=== PATIENT | female | born 1945 | race Caucasian/White ===

== ENCOUNTER 2021-09-02 19:25 | Emergency (ER) | payer MEDICARE, SELFPAY ==
--- NOTE | ~2021-09-02 | XR_ITS ---
XR chest 2V DATE: 09/02/2021 19:54 INDICATION: Chest pain TECHNIQUE: PA and lateral views COMPARISON: 03/24/2008 two-view chest FINDINGS: Normal heart size. Is aortic calcification and mild unfolding. No hilar or mediastinal enla rgement. No pulmonary infiltrate or consolidation, pleural effusion or pulmonary vascular congestion or pneumo thorax. Diffuse osteopenia. There is mild loss of height and anterior wedging of T12. There is mild dextroscoliosis of the mid an d lower thoracic spine. IMPRESSION: No active cardiopulmonary disease Mild loss of height and anterior wedging of T12, new since 03/24/2008 Reviewed, dictated and finalized at location A. ETICS DEMONSTRATOR
--- NOTE | 2021-09-02 19:28 | ECG_ITS ---
Measurements Intervals [place] Rate: 102 P: 53 MO: 184 QRS: -21 QRSD: 93 T: 75 QT: 347 QTc: 454 Interpretive Statements SINUS TACHYCARDIA POSSIBLE LEFT ATRIAL ENLARGEMENT INCOMPLETE RIGHT BUNDLE BRANCH BLOCK BORDERLINE ST-T WAVE ABNORMALITY- HIGH LATERAL LEADS BASELINE ARTIFACT- I BORDERLINE ECG Electronically Signed On 09-02-2021 20:30:44 [employer]PERVISOR [employer]ROLL by Shade Diallo D.O.
[2021-09-02 19:35] VITALS: BP 179/87; PULSE 101; RESP 18; TEMP 36.7; O2SAT 100
[2021-09-02 20:11] LABS: Basophils Absolute Auto 0.1 K/mm3 (0.0-0.1); Basophils Percent Auto 0.8 % (0.2-1.2); Eosinophils Absolute Auto 0.1 K/mm3 (0-0.3); Hematocrit 41.2 % (37.0-47.0); Hemoglobin 13.5 g/dL (12.0-15.0); Immature Granulocyte Absolute 0.01 K/mm3 (0.00-0.031); Immature Granulocyte Percent A 0.2 % (0-0.5); Lymphocytes Absolute Auto 2.29 K/mm3 (0.9-3.2); Lymphocytes Percent Auto 34.4 % (18.3-44.2); Mean Corpuscular HGB Conc 32.8 g/dl (32-36); Mean Corpuscular Hemoglobin 32.2 pg (26-34); Mean Corpuscular Volume 98.3 fl (80-100); Mean Platelet Volume 10.6 fl (7.4-10.4); Monocytes Absolute Auto 0.5 K/mm3 (0.1-0.6); Monocytes Percent Auto 7.1 % (2.6-8.5); Neutrophils Absolute Auto 3.7 K/mm3 (1.3-6.7); Neutrophils Percent Auto 55.5 % (45.5-73.1); Platelet Count Result 169 k/mm3 (150-375); Red Blood Count 4.19 M/mm3 (4.2-5.4); Red Cell Distribution Width 11.9 % (11.5-14.5); White Blood Count 6.7 K/mm3 (4.5-10.0)
[2021-09-02 20:16] VITALS: BP 154/94; PULSE 99; RESP 26; O2SAT 94
[2021-09-02 20:24] LABS: INR 0.9; Partial Thromboplastin Time 29.7 SECONDS (22.3-36.8); Prothrombin Time 12.5 Seconds (11.1-14.7)
[2021-09-02 20:26] LABS: Alanine Aminotransferase 34 U/L (4-35); Albumin Level 4.9 g/dL (3.5-5.1); Alkaline Phosphatase 84 U/L (38-126); Anion Gap 4 mmol/L (8-16); Aspartate Amino Transferase 28 U/L (14-36); Bilirubin,Total 0.7 mg/dL (0.2-1.3); Blood Urea Nitrogen 22 mg/dL (7-17); Calcium 9.7 mg/dL (8.4-10.2); Carbon Dioxide 29 mmol/L (22-30); Chloride 107 mmol/L (98-107); Estimated CRCL calculation 30 ml/min; Estimated Glomerular Filt Rate 44; Glucose 107 mg/dL (65-110); Lipase 70 U/L (23-300); Potassium 4.4 mmol/L (3.4-5.0); Sodium 140 mmol/L (137-145)
[2021-09-02 20:31] VITALS: BP 159/85; PULSE 98; RESP 12; O2SAT 95
[2021-09-02 20:35] LABS: Troponin I < 0.012 ng/mL (0.000-0.034)
--- NOTE | 2021-09-02 20:37 | ED.ARRPALP ---
HPI - Arrhythmia/Palpitations General Chief Complaint: Arrhythmia/Palpitations Stated Complaint: high HR low BP Time Seen by Provider: 09/02/21 20:14 Source: patient History of Present Illness HPI narrative: Patient presents with a shakiness. Patient ports she is had intermittent episodes over the past couple weeks which resolved without intervention. Today she had multiple episodes she was having increased concerned so she checked her heart rate and blood pressure today. During the episode her blood pressure was in the 80 systolic and heart rate was 150s. She was concerned called her cardiology team is referred to the ER for evaluation. On arrival to the ER she reports she is feeling much improved and her symptoms have resolved. She was unable to identify any clear triggering event. She denies any chest pain or shortness of breath describes sensation of achiness everywhere. She sees a rail switchman for sinus tachycardia she denies history of A. fib or history of A. fib Related Data Home Medications Medication Instructions Recorded Confirmed alprazolam 09/02/21 amitriptyline 09/02/21 escitalopram oxalate mg 09/02/21 metoprolol tartrate 09/02/21 Allergies Allergy/AdvReac Type Severity Reaction Status Date / Time codeine Allergy Intermediate Other Verified 09/02/21 19:41 estrogens, conjugated Allergy Mild Other Verified 09/02/21 19:41 prochlorperazine Allergy Mild Other Verified 09/02/21 19:41 ibuprofen AdvReac Unknown Nausea and Verified 09/02/21 19:41 Vomiting HYDROCODONE BIT Allergy Mild Other Uncoded 09/02/21 19:41 Review of Systems Review of Systems: CONSTITUTIONAL: Denies fever, chills, or sweats. EYES: Denies visual changes, redness, or discharge. ENT: Denies rhinorrhea, congestion, sore throat, or otalgia. CARDIOVASCULAR: Denies chest pain, palpitations, or edema. RESPIRATORY: Denies cough or dyspnea. GASTROINTESTINAL: Denies abdominal pain, nausea, vomiting, or diarrhea. GENITOURINARY: Denies dysuria or hematuria. SKIN: Denies rash or itching. MUSCULOSKELETAL: Denies back pain, joint pain, or myalgia. NEUROLOGIC: Denies headache, numbness, dizziness, or weakness. PSYCHIATRIC: Denies anxiety or depression. All systems reviewed & are unremarkable except as noted in HPI and below PMFSH Past Medical History Medical History (Updated 09/02/21 @ 21:24 by Raymond Nichole MD) Sinus tachycardia Social History Social History (Updated 09/02/21 @ 20:38 by Raymond Nichole MD) Smoking status: Never smoker Substance use type: does not use Exam Narrative: GENERAL: Well-appearing, well-nourished, and in no acute distress. HEAD: Normocephalic, atraumatic. EYES: PERRLA and EOMI. ENT: Nares clear, no rhinorrhea or epistaxis. Mucous membranes moist. NECK: Supple. No masses. No JVD CHEST: Clear to auscultation. No respiratory distress. No wheezes rales or rhonchi HEART: Regular rate and rhythm. No murmur heard. Normal peripheral pulses. ABDOMEN: Soft, nontender, nondistended, normal active bowel sounds. EXTREMITIES: Normal range of motion. No edema. SKIN: Warm, dry, no rash. NEURO: No focal deficits. Alert and oriented x3. PSYCH: Normal mood and affect. Course Reevaluation(s) Reevaluation #1: Patient is resting comfortably remains asymptomatic monitor was reviewed no events were captured. Case cussed with Dr. Hester, radiology clinic as an outpatient after increasing her metoprolol. Patient comfortable outpatient plan. Date: 09/02/21 Time: 21:23 Vital Signs Vital signs: Vital Signs Temperature 36.7 C 09/02/21 19:35 Pulse Rate 101 H 09/02/21 19:35 Respiratory Rate 18 09/02/21 19:35 Blood Pressure 179/87 H 09/02/21 19:35 Pulse Oximetry 100 09/02/21 19:35 Temperature 36.7 C 09/02/21 19:35 Pulse Rate 92 09/02/21 21:01 Respiratory Rate 14 09/02/21 21:01 Blood Pressure 157/79 H 09/02/21 21:01 Pulse Oximetry 95 09/02/21 21:01 MDM - Arrhythmia/Palpitati
[2021-09-02 21:01] VITALS: BP 157/79; PULSE 92; RESP 14; O2SAT 95
== END 2021-09-02 21:33 | disposition home or self-care (01) ==
PROVIDERS: Emergency Medicine; Emergency Provider Emergency Medicine; PCP Family Medicine
DX: R00.2 Palpitations (principal); R00.0 Tachycardia, unspecified; I45.10 Unspecified right bundle-branch block; R94.31 Abnormal electrocardiogram [ECG] [EKG]
CPT/HCPCS: 36415; 71046; 80053; 83690; 84443; 84484; 85025; 85610; 85730; 93005; 99284

== ENCOUNTER 2022-06-20 14:27 | Emergency (ER) | payer MEDICARE, SELFPAY ==
--- NOTE | ~2022-06-20 | CT_ITS ---
EXAMINATION: CT brain wo con INDICATION: Dizziness after fall COMPARISON: None TECHNIQUE: Standard unenhanced head CT. The dose-length product (DLP) was 605.33 mGy-cm. The mA was a djusted according to patient size. Iterative reconstruction technique was employed. FINDINGS: There is no acute intraparenchymal hemorrhage. No evidence of mass lesion. No evidence of a cute infarction. There is mild periventricular and subcortical hypodensity probably related to small vessel ischemic disease. There is mild prominence of the sulci and ventricles related to cerebral atr ophy. Intracranial calcified cerebral atherosclerosis is noted. There are no extra-axial collections. There is no mass effect or midline shift. There is a posterior scalp hematoma. The visualized sinuse s and mastoid air cells are well aerated. IMPRESSION: 1. Posterior scalp hematoma without acute intracranial abnormality. 2. Age related findings. Reviewed, dictated and finalized at location F. ECTIVE BARGAINING SPECIALIST
--- NOTE | ~2022-06-20 | CT_ITS ---
EXAMINATION: CTA brain carotid DATE: 06/20/2022 18:27 INDICATION: Acute dizziness after head injury TECHNIQUE: Computed tomographic angiography (CTA) of the head was performed without and with 100 mL O mnipaque-350 intravenous contrast. CTA of the neck was performed with intravenous contrast. The dose- length product was 994.39 mGy-cm. Maximum intensity projection and volume rendered 3D-reconstructions were created by the technologist on a separate workstation. Automated exposure control and iterative reconstruction technique were employed. COMPARISON: CT from today FINDINGS: HEAD CTA: There is no acute intraparenchymal hemorrhage. No evidence of mass lesion. No evidence of a cute infarction. There is mild periventricular and subcortical hypodensity probably related to small vessel ischemic disease. There is mild prominence of the sulci and ventricles related to cerebral atr ophy. Intracranial calcified cerebral atherosclerosis is noted. There are no extra-axial collections. There is no mass effect or midline shift. Changes in the globes are likely from ocular lens surgery. There is a posterior scalp hematoma. The visualized sinuses and mastoid air cells are well aerated. There is no significant stenosis of the basilar artery or posterior cerebral arteries. There is no si gnificant stenosis of the intracranial internal carotid arteries or the anterior or middle cerebral a rteries. The anterior communicating artery and posterior communicating arteries are normal. There is no aneurysm. NECK CTA: The thyroid gland is unremarkable. The submandibular and parotid glands are symmetric. Ther e is no lymphadenopathy. There are no masses identified. The airway is unremarkable. There is severe cervical spondylosis with changes of anterior fusion from C3 through C6. The superior mediastinum is unremarkable. There is 0% stenosis of the proximal right internal carotid artery relative to normal distal artery l umen diameter (NASCET criteria). There is 0% stenosis of the proximal left internal carotid artery re lative to normal distal artery lumen diameter. IMPRESSION: 1. No acute intracranial abnormality. Normal head CTA. 2. 0% stenosis of the proximal right internal carotid artery relative to normal distal artery lumen d iameter (NASCET criteria). 3. 0% stenosis of the proximal left internal carotid artery relative to normal distal artery lumen di ameter. Reviewed, dictated and finalized at location F. ARCH ENGINEER MARINE EQUIPMENT IMPRESSION: 1. No acute intracranial abnormality. Normal head CTA. 2. 0% stenosis of the proximal right internal carotid artery relative to normal distal artery lumen diameter (NASCET criteria). 3. 0% stenosis of the proximal left internal carotid artery relative to normal distal artery lumen diameter.
[2022-06-20 14:30] VITALS: BP 165/89; PULSE 92; RESP 18; TEMP 36.5; O2SAT 100
--- NOTE | 2022-06-20 17:43 | ED.GENADULT ---
HPI - General Adult General Chief complaint: Headache <Jasmina Ordonez PA-C - Last Filed: 06/20/22 22:21> Stated complaint: HEADACHE, HX OF CONCUSSION 1MONTH AGO <Jasmina Ordonez PA-C - Last Filed: 06/20/22 22:21> Time Seen by Provider: 06/20/22 17:32 <Jasmina Ordonez PA-C - Last Filed: 06/20/22 22:21> History of Present Illness HPI narrative: 76-year-old female here for evaluation of dizziness over the past month. Patient states that she had a fall with head injury about a month ago resulting in a large hematoma to the back of her head. She was seen at [facility] at that time, was diagnosed with a concussion, was discharged home. Patient tells me that she has a history of vertigo but over the past month it has been worse than usual. Today, her episode rendered her bedbound which prompted her ED evaluation. A friend gave her meclizine before coming into the emergency department and now she feels improved. Currently asymptomatic. No blood thinner use, nausea, vomiting, headaches, visual changes, seizure-like activity, loss of consciousness. No chest pain, shortness of breath, fevers or chills, tinnitus, hearing changes or ear pain. <Jasmina Ordonez PA-C - Last Filed: 06/20/22 22:21> Related Data Home medications: Home Medications Medication Instructions Recorded Confirmed alprazolam 0.25 mg tablet 09/02/21 amitriptyline 50 mg tablet 09/02/21 escitalopram oxalate 10 mg tablet mg 09/02/21 metoprolol tartrate 25 mg tablet 09/02/21 <Jasmina Ordonez PA-C - Last Filed: 06/20/22 22:21> Allergies/adverse reactions: Allergies Allergy/AdvReac Type Severity Reaction Status Date / Time codeine Allergy Intermediate Other Verified 09/02/21 19:41 estrogens, conjugated Allergy Mild Other Verified 09/02/21 19:41 prochlorperazine Allergy Mild Other Verified 09/02/21 19:41 ibuprofen AdvReac Unknown Nausea and Verified 09/02/21 19:41 Vomiting HYDROCODONE BIT Allergy Mild Other Uncoded 09/02/21 19:41 <Jasmina Ordonez PA-C - Last Filed: 06/20/22 22:21> Review of Systems Review of Systems: Gen: Denies fevers or chills Eyes: Denies eye pain or visual change ENT: Denies congestion Respiratory: Denies shortness of breath or cough CV: Denies chest pain or palpitations GI: Denies abdominal pain nausea, emesis or diarrhea : denies burning, urgency, frequency or hematuria Musculoskeletal: Denies back pain or muscle pain Neuro: Reports dizziness. Denies numbness, tingling, weakness or focal weakness Skin: Denies rash Except as documented, all other systems reviewed and negative <Jasmina Ordonez PA-C - Last Filed: 06/20/22 22:21> [facility] Past Medical History Medical History: Medical History Sinus tachycardia <Jasmina Ordonez PA-C - Last Filed: 06/20/22 22:21> Social History Social History: Social History (Updated 09/02/21 @ 20:38 by Raymond Nichole MD) Smoking status: Never smoker Substance use type: does not use <Jasmina Ordonez PA-C - Last Filed: 06/20/22 22:21> Exam Narrative: APPEARANCE: Well appearing, no pain in distress, well-nourished. Head: Normocephalic and atraumatic. EYES: PERRLA/EOMI, conjunctivae clear NOSE: No nasal drainage EARS: External ear normal in appearance THROAT: Oropharynx is clear. Mucous membranes are moist. NECK: Supple. No adenopathy, no masses. RESPIRATORY: Airway patent, respirations nonlabored. Clear to auscultation bilaterally, no rales, rhonchi, wheezing. CARDIOVASCULAR: Regular rate and rhythm without murmurs, rubs, or gallops. ABDOMINAL: Normoactive bowel sounds. Soft, nontender, nondistended. No rebound tenderness or guarding. MUSCULOSKELETAL: Extremities are warm and well-perfused. Moves all extremities well. No edema. NEURO: Normal speech. No focal neurologic deficits. SKIN: Skin is warm and dry. No r
--- NOTE | 2022-06-20 17:45 | ECG_ITS ---
Measurements Intervals [place] Rate: 95 P: 58 GA: 185 QRS: -18 QRSD: 85 T: 41 QT: 368 QTc: 464 Interpretive Statements SINUS RHYTHM POSSIBLE LEFT ATRIAL ENLARGEMENT BASELINE ARTIFACT- I, AVR, AVL BORDERLINE ECG COMPARED TO ECG 09/02/2021 19:31:38 SINUS RHYTHM NOW PRESENT Electronically Signed On 06-20-2022 20:45:40 [employer]MOND PASTE MIXER by Shade Diallo D.O.
[2022-06-20 17:56] LABS: Basophils Absolute Auto 0.1 K/mm3 (0.0-0.1); Basophils Percent Auto 0.7 % (0.2-1.2); Eosinophils Absolute Auto 0.1 K/mm3 (0-0.3); Eosinophils Percent Auto 1.2 % (0-4.4); Hematocrit 40.3 % (37.0-47.0); Hemoglobin 13.4 g/dL (12.0-15.0); Immature Granulocyte Absolute 0.01 K/mm3 (0.00-0.031); Immature Granulocyte Percent A 0.1 % (0-0.5); Lymphocytes Absolute Auto 1.81 K/mm3 (0.9-3.2); Lymphocytes Percent Auto 23.7 % (18.3-44.2); Mean Corpuscular HGB Conc 33.3 g/dl (32-36); Mean Corpuscular Hemoglobin 32.3 pg (26-34); Mean Corpuscular Volume 97.1 fl (80-100); Mean Platelet Volume 10.6 fl (7.4-10.4); Monocytes Absolute Auto 0.3 K/mm3 (0.1-0.6); Monocytes Percent Auto 4.5 % (2.6-8.5); Neutrophils Absolute Auto 5.3 K/mm3 (1.3-6.7); Neutrophils Percent Auto 69.8 % (45.5-73.1); Platelet Count Result 213 k/mm3 (150-375); Red Blood Count 4.15 M/mm3 (4.2-5.4); Red Cell Distribution Width 12.5 % (11.5-14.5); White Blood Count 7.6 K/mm3 (4.5-10.0)
[2022-06-20 18:05] LABS: Alanine Aminotransferase 30 U/L (6-35); Albumin Level 4.8 g/dL (3.5-5.1); Alkaline Phosphatase 98 U/L (38-126); Anion Gap 11 mmol/L (8-16); Aspartate Amino Transferase 33 U/L (14-36); Bilirubin,Total 1.1 mg/dL (0.2-1.3); Blood Urea Nitrogen 15 mg/dL (7-17); Calcium 9.7 mg/dL (8.4-10.2); Carbon Dioxide 28 mmol/L (22-30); Chloride 102 mmol/L (98-107); Estimated CRCL calculation 49 ml/min; Estimated Glomerular Filt Rate > 60; Glucose 99 mg/dL (65-110); Magnesium 2.1 mg/dL (1.6-2.3); Potassium 4.9 mmol/L (3.4-5.0); Sodium 141 mmol/L (137-145)
[2022-06-20 18:16] LABS: Troponin I < 0.012 ng/mL (0.000-0.034)
--- NOTE | 2022-06-20 18:16 | PC.NURSE ---
patient refuses IVF. provider aware
[2022-06-20 19:33] VITALS: BP 177/95; PULSE 104; RESP 18; O2SAT 100
== END 2022-06-20 19:33 | disposition home or self-care (01) ==
PROVIDERS: Physician Assistant; Emergency Provider Emergency Medicine; PCP Family Medicine
DX: R42 Dizziness and giddiness (principal)
CPT/HCPCS: 36415; 70450; 70496; 70498; 80053; 83735; 84484; 85025; 93005; 99284; Q9967

== ENCOUNTER 2023-11-06 15:56 | Outpatient (CLI) | payer MEDICARE, SELFPAY ==
[2023-11-06 18:52] LABS: Basophils Percent Auto 0.7 % (0.2-1.2); Eosinophils Absolute Auto 0.1 K/mm3 (0-0.3); Eosinophils Percent Auto 2.3 % (0-4.4); Hemoglobin 12.5 g/dL (12.0-15.0); Immature Granulocyte Absolute 0.01 K/mm3 (0.00-0.031); Immature Granulocyte Percent A 0.2 % (0-0.5); Lymphocytes Absolute Auto 1.71 K/mm3 (0.9-3.2); Lymphocytes Percent Auto 30.8 % (18.3-44.2); Mean Corpuscular HGB Conc 32.9 g/dl (32-36); Mean Corpuscular Hemoglobin 32.3 pg (26-34); Mean Corpuscular Volume 98.2 fl (80-100); Monocytes Absolute Auto 0.3 K/mm3 (0.1-0.6); Monocytes Percent Auto 5.2 % (2.6-8.5); Neutrophils Absolute Auto 3.4 K/mm3 (1.3-6.7); Neutrophils Percent Auto 60.8 % (45.5-73.1); Platelet Count Result 157 k/mm3 (150-375); Red Blood Count 3.87 M/mm3 (4.2-5.4); Red Cell Distribution Width 12.1 % (11.5-14.5); White Blood Count 5.6 K/mm3 (4.5-10.0)
[2023-11-06 19:20] LABS: Alanine Aminotransferase 40 U/L (6-35); Albumin Level 4.3 g/dL (3.5-5.1); Alkaline Phosphatase 113 U/L (38-126); Anion Gap 7 mmol/L (4-12); Aspartate Amino Transferase 44 U/L (14-36); Bilirubin,Total 0.8 mg/dL (0.2-1.3); Blood Urea Nitrogen 17 mg/dL (7-17); Calcium 9.8 mg/dL (8.4-10.2); Carbon Dioxide 27 mmol/L (22-30); Chloride 106 mmol/L (98-107); Cholesterol 195 mg/dL (0-200); Estimated Glomerular Filt Rate > 60; Glucose 99 mg/dL (65-110); HDL Direct 61 mg/dL; Potassium 4.6 mmol/L (3.4-5.0); Sodium 140 mmol/L (137-145); Triglycerides 145 mg/dL (<150)
[2023-11-06 19:31] LABS: LDL Cholesterol Direct 103 mg/dL
[2023-11-06 21:11] LABS: Hepatitis C Virus Antibody Negative (Negative)
== END 2023-11-06 15:57 | disposition home or self-care (01) ==
LOC: ANHGOSHLAB 15:57
PROVIDERS: PCP Family Medicine; Visit Provider Physician Assistant
DX: F41.9 Anxiety disorder, unspecified (principal); M81.0 Age-related osteoporosis without current pathological fracture; R00.0 Tachycardia, unspecified; Z79.899 Other long term (current) drug therapy; Z11.59 Encounter for screening for other viral diseases
CPT/HCPCS: 36415; 80053; 80061; 84443; 85025; 86803

== ENCOUNTER 2024-01-13 09:08 | Outpatient (CLI) | payer MEDICARE, SELFPAY ==
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
[2024-01-16 18:05] VITALS: BMI 24.0
== END 2024-01-14 07:30 | disposition home or self-care (01) ==
LOC: ANHCSM 09:09
PROVIDERS: PCP Family Medicine; Visit Provider Physician Assistant
DX: G47.33 Obstructive sleep apnea (adult) (pediatric) (principal); Z72.821 Inadequate sleep hygiene
CPT/HCPCS: 95800

== ENCOUNTER 2024-01-13 13:10 | Outpatient (CLI) | payer MEDICARE, SELFPAY ==
--- NOTE | ~2024-01-13 | DEXA_ITS ---
Bone Density Report Name: KARLENE SHEA Age: 78 Sex: Female Ethnicity: White Date of : 1945 Indication: postmenopausal; screening for osteoporosis; height loss; hysterectomy; Referring Provider: RUTH ANN, SO Meier Study: Bone densitometry was performed. Exam Date: January 13, 2024 Accession number: [id number] Bone Density: Region BMD T-score Z-score Classification AP Spine(L1-L4) 0.929 -1.1 1.4 Osteopenia Femoral Neck (Left) 0.587 -2.4 -0.2 Osteopenia Total Hip (Left) 0.839 -0.8 1.1 Normal Femoral Neck (Right) 0.630 -2.0 0.2 Osteopenia Total Hip (Right) 0.817 -1.0 0.9 Normal Total Hip Mean 0.828 -0.9 1.0 Normal World Health Organization criteria for BMD impression classify patients as: Normal (T-score at or above -1.0), Osteopenia (T-score between -1.0 and -2.5), or Osteoporosis (T-score at or below -2.5). 10-year Fracture Risk(1): Major Osteoporotic Fracture 16% Hip Fracture 5.2% Reported Risk Factors: [place] (), Neck BMD=0.587, BMI=24.0 (1) FRAX(R) Version 3.08. Fracture probability calculated for an untreated patient. Fracture probability may be lower if the patient has received treatment. Clinical Information Provided by Patient: Has the following medical conditions: Hysterectomy Patient maximum height was 64.0 Menopause Age: 36 No regular weight bearing exercise Drinks caffeinated beverages Onset of menses at age 13 Number of children 2 Impression: The patient has low bone mass, based on the Left Femoral Neck T-score. The patient has an estimated ten-year risk of hip fracture of 5.2% and an estimated ten-year risk of major fracture of 16%, based on the WHO FRAX algorithm. Discussion: BONE DENSITY IS LOW AT ONE OR MORE SKELETAL SITES. THE PATIENT'S BMD AND CLINICAL RISK FACTORS CONTRIBUTE TO THIS PATIENT'S INCREASED RISK OF FRACTURE. This patient's lowest T-score is low at one or more skeletal sites. It meets the World Health Organization's (WHO) criteria for ?low bone mass? (T-score between -1.0 and -2.5). The patient's 10-year risk of hip fracture as calculated by FRAX exceeds the threshold where pharmacological therapy is recommended by the National Osteoporosis Foundation (NOF). However, all treatment decisions require clinical judgment and consideration of individual patient factors, including patient preferences, comorbidities, previous drug use, risk factors not captured in the FRAX model (e.g., frailty, falls, vitamin D deficiency, increased bone turnover, interval significant decline in bone density) and possible under or overestimation of fracture risk by FRAX. The patient should follow a healthful lifestyle (good nutrition with adequate calcium and vitamin D, and appropriate weight-bearing exercise). Follow-Up: Consider a repeat BMD and
== END 2024-01-13 13:11 | disposition home or self-care (01) ==
LOC: ANHIMG 13:11
PROVIDERS: PCP Family Medicine; Visit Provider Physician Assistant
DX: M81.0 Age-related osteoporosis without current pathological fracture (principal); M85.89 Other specified disorders of bone density and structure, multiple sites
CPT/HCPCS: 77080; 95800

== ENCOUNTER 2024-03-01 13:49 | Outpatient (CLI) | payer MEDICARE, SELFPAY ==
[2024-03-01 19:37] LABS: Alanine Aminotransferase 25 U/L (6-35); Albumin Level 4.4 g/dL (3.5-5.1); Alkaline Phosphatase 87 U/L (38-126); Aspartate Amino Transferase 29 U/L (14-36); Bilirubin,Total 0.8 mg/dL (0.2-1.3)
== END 2024-03-01 13:50 | disposition home or self-care (01) ==
PROVIDERS: PCP Family Medicine; Visit Provider Family Medicine
DX: R94.5 Abnormal results of liver function studies (principal)
CPT/HCPCS: 36415; 80076

== ENCOUNTER 2024-07-09 11:48 | Emergency (ER) | payer MEDICARE, SELFPAY ==
[2024-07-09 11:54] VITALS: BP 135/75; PULSE 106; RESP 16; TEMP 36.2; O2SAT 100
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
== END 2024-07-09 12:40 | disposition home or self-care (01) ==
PROVIDERS: Emergency Provider Nurse Practitioner; PCP Family Medicine
DX: J06.9 Acute upper respiratory infection, unspecified (principal); M19.90 Unspecified osteoarthritis, unspecified site; M81.0 Age-related osteoporosis without current pathological fracture
CPT/HCPCS: 99213; G0463

== ENCOUNTER 2024-11-23 11:16 | Outpatient (CLI) | payer MEDICARE, SELFPAY ==
--- OUTSIDE RECORDS SUMMARY | 2024-11-23 13:06 | XMS_ITS | Encounter Summary ---
Author Organization [facility] Health Address [address] [place] [address] Care Team Providers Care Pipe Threader Name Role Phone Michelle Jaramillo MD Primary Care Provider [phone] Encounter Details Date Type Department Care Team (Late st Contact Info) Description 05/05/2024 Lab Requisition [facility] - DermPath Lab [address] [place] [address] Thu Jones MD [address] [facility] [address] [place] [address] Social History Tobacco Use Types Packs/Day Years Used Date Smoking Tobacco: Never Alcohol Use Standard Drinks/Week Comments No 0 (1 standard drink = 0.6 oz pur e alcohol) Comments No Sex and Gender Information Value Date Recorded Sex Assigned at Not on file Legal Sex Female 3:24 PM CDT Gender Identity Not on file Sexual Orientation Not on file documented as of this encounter Plan of Treatment Not on file documented as of this encounter Procedures Procedure Name Priority Date/Time Associated Diagnosis Comments DERMATOPATHOLOGY Routine 05/05/2024 9:17 AM CDT documented in this encounter Results * DERMATOPATHOLOGY (05/05/2024 9:17 AM CDT) Case Report Dermatopathology Report Case: [id number] Authorizing Provider: Thu Jones MD Collected: 05/05/2024 09:17 AM Ordering Location: [facility] - Received: 05/06/2024 06:25 AM DermPath Lab Pathologist: Jasmina Barba MD Specimen: Skin, right helix 1:59 PM CDT DERMATOPATHOLOGY LABORATORY Final Diagnosis Specimen A. SKIN, right helix: VERRUCA VULGARIS (B07.8) 1:59 PM CDT DERMATOPATHOLOGY LABORATORY Clinical History AK vs BCC vs SCC; growing; non-healing 1:59 PM CDT DERMATOPATHOLOGY LABORATORY Gross Description Specimen A: Received is one formalin filled container labeled with the patient's name and designated right helix. The specimen consists of a shave biopsy measuring 6x4x2 mm. Jar 0. 1:59 PM CDT DERMATOPATHOLOGY LABORATORY Microscopic Description Specimen A. SKIN, right helix: There is digitated epidermal hyperplasia, hypergranulosis, vacuolated granular layer cells, and compact hyperorthokeratosis . 1:59 PM CDT DERMATOPATHOLOGY LABORATORY Disclaimer An external and internal positive and negative controls are appropriate for the histochemical, immunohistochemical and immunofluorescence stain(s) in this case (if any), except where stated explicitly. The performance characteristics of the stain(s) cited in this report were developed and its performance characteristic determined by the Dermatopathology Laboratory at [facility], directed by Dr. Dayan Boles. These tests need not be, and therefore are not, approved by the [place] Food and Drug Administration. The tests are used for clinical purposes. Billing Codes Specimen Charges Stain Charges 50460 1 1:59 PM CDT DERMATOPATHOLOGY LABORATORY Embedded Images 1:59 PM CDT DERMATOPATHOLOGY LABORATORY Pathology/Cytolo gy TISSUE SPECIMEN FROM SKIN / Unknown 05/05/2024 9:17 AM CDT 05/06/2024 6:25 AM CDT us Thu Jones MD LAB - PATHOLOGY/CYTOLOGY OR DERABLES Final Result DERMATOPATHOLOGY LABORATORY [facility] - Department of Dermatology [facility] [address] [place] [address], [address] [phone] documented in this encounter Visit Diagnoses Not on filedocumented in this encounter Care Teams Pipe Threader Relationship Specialty Start Date End Date Michelle Jaramillo MD [facility] [place] [address] PCP - General Family Medicine 05/26/22 documented as of this encounter
--- OUTSIDE RECORDS SUMMARY | 2024-11-23 13:06 | XMS_ITS | Clinical Summary ---
Author Organization [facility] Address [address] [address] Care Team Providers Care Animal Assisted Therapist Name Role Phone Michelle Jaramillo MD Primary Care Provider [phone] Allergies Active Allergy Reactions Criticality Noted Date Comments Azithromycin 06/21/2021 Clarithromycin Nausea 06/21/2021 Prochlorperazine Anxiety Low 06/21/2021 Hydrocodone-Acetaminophen Anxiety,Nausea Low 2020 Conjugated Estrogens 06/21/2021 Medications ALPRAZolam (XANAX) 0.25 MG tablet Take 0.25 mg by mouth 3 (three) times a day if needed for anxiety Active amitriptyline (ELAVIL) 50 MG tablet Take 50 mg by mouth every night Take 1 to 2 Tablets by mouth at bedtime. Active cholestyramine light (PREVALITE) 4 GM/DOSE powder Take 4 g by mouth 3 (three) times a day with meals Disolve one scoop in Liquid three times daily as needed. Active dicyclomine (BENTYL) 10 MG capsule Take 10 mg by mouth 3 times a day Active escitalopram (LEXAPRO) 10 MG tablet Take 10 mg by mouth 1 (one) time each day Active ketoconazole (NIZORAL) 2 % cream Apply topically 2 (two) times a day Apply twice daily to face Active meclizine (ANTIVERT) 25 MG tablet Take 25 mg by mouth 3 (three) times a day if needed for dizziness Active metoprolol tartrate 25 MG tablet Take 25 mg by mouth 2 (two) times a day Active omeprazole (PriLOSEC) [address] capsule Take 40 mg by mouth 1 (one) time each day Do not crush or chew. Active rifAXIMin (XIFAXAN) 550 MG tablet Take 550 mg by mouth Active Family History Medical History Relation Comments Heart failure Father Stroke Father Cancer Maternal Grandfather Cancer Mother Migraines Mother Hepatitis Sister Relation Status Comments Father Maternal Grandfather Mother Sister Social History Tobacco Use Types Packs/Day Years Used Date Smoking Tobacco: Never Smokeless Tobacco: Never Alcohol Use Standard Drinks/Week Comments Yes 0 (1 standard drink = 0.6 oz pur e alcohol) Occasional Comments Unknown Sex and Gender Information Value Date Recorded Sex Assigned at Not on file Legal Sex Female 2:17 PM EST Gender Identity Not on file Sexual Orientation Not on file Occupation Industry Job Start Date Job End Date Retired Not on file Not on file Not on file Plan of Treatment Health Maintenance Due Date Last Done Comments Pneumococcal Vaccine: 50+ Ye ars (1 of 2 - PCV) 1964 Influenza Vaccine (Season Ended) 2025 Hepatitis B Vaccine Aged Out No longe r eligible based on patient's age to complete this topic Care Teams Animal Assisted Therapist Relationship Specialty Start Date End Date Michelle Jaramillo MD [facility] [place] [address] PCP - General Family Medicine 07/03/21
--- OUTSIDE RECORDS SUMMARY | 2024-11-23 13:06 | XMS_ITS | Referral Summary ---
Author Organization [facility] Address [address] [place] [id number] Care Team Providers Care Firesetter Name Role Phone Katerin Lima MD Primary Care Provider + Allergies Active Allergy Reactions Criticality Noted Date Comments Azithromycin Clarithromycin Nausea only Low Conjugated Estrogens Unknown Estrogens Hydrocodone Hydrocodone-Acetaminophen Nausea only Low Prochlorperazine Unknown Medications ALPRAZolam (XANAX) 0.25 mg tablet take 1 Tablet by oral route 3 times every day as needed 0 0 5 Active amitriptyline (ELAVIL) 50 mg tablet take 1 tablet by oral route 2 times every day at bedtime 0 0 5 Active escitalopram (LEXAPRO) 10 mg tablet take 1 tablet by oral route every day 0 0 5 Active txkij-1o-ylf-ep a-fish oil (OMEGA-3 FISH OIL) 300-1,000 mg capsule 0 0 5 Active biotin 1 mg tablet Take 1 tablet (1,000 mcg total) by mouth daily Active Cholestyramine Light 4 gram powder DISSOLVE ONE SCOOP IN LIQUID THREE TIMES DAILY NEEDED. 1 Active meclizine (ANTIVERT) 12.5 mg tablet Take 1 tablet (12.5 mg total) by mouth 3 (three) times a day as needed for dizziness Active metoprolol tartrate (LOPRESSOR) 25 mg immediate release tablet Take 1 tablet by mouth twice daily 180 tablet 4 Active Active Problems Problem Noted Date Diagnosed Date Preop cardiovascular exam 04/06/2024 Palpitations 12/04/2020 Shortness of breath 05/30/2020 Recurrent chest pain 01/01/2018 Sinus tachycardia 04/22/2017 Fibromyalgia 04/22/2017 Pre-operative cardiovascular examination 017 Syncope and collapse 04/22/2017 Pre-syncope 04/22/2017 Mass of breast 08/20/2016 Abnormal magnetic resonance imaging of breast Hyperlipidemia 09/16/2014 Overview (11/08/2016): Hyperlipidemia Fibrositis 09/16/2014 Overview (11/08/2016): Fibromyalgia Disease of pericardium 09/16/2014 Overview (11/08/2016): Disease of pericardium Atypical chest pain 09/16/2014 Overview (11/08/2016): Chest pain Social History Tobacco Use Types Packs/Day Years Used Date Smoking Tobacco: Never Smokeless Tobacco: Never Alcohol Use Standard Drinks/Week Comments Yes 2 (1 standard drink = 0.6 oz pur e alcohol) rarely Personal Safety Answer Date Recorded Getting School Help Needed Not on file 08/05 Comments No Sex and Gender Information Value Date Recorded Sex Assigned at Not on file Legal Sex Female 12:34 AM MEDICAL CSR Gender Identity Not on file Sexual Orientation Not on file Last Filed Vital Signs Vital Sign Reading Time Taken Comments Blood Pressure 122/70 04/06/2024 10:55 AM CDT Pulse 86 04/06/2024 10:55 AM CDT Temperature 37.1 C (98.7 F) 01/02/2022 10:56 AM CDT Respiratory Rate 20 01/02/2022 10:56 AM CDT Oxygen Saturation 97% 04/06/2024 10:55 AM CDT Inhaled Oxygen Concentration - - Weight 60.8 kg (134 lb) 04/06/2024 10:55 AM CDT Height 162.6 cm (5' 4 ) 04/06/2024 10:55 AM CDT Body Mass Index 23 04/06/2024 10:55 AM CDT Plan of Treatment Not on file Procedures Procedure Name Priority Date/Time Associated Diagnosis Comments SCREENING MAMMOGRAM BILATERAL W FILOMENA Schedule Routine, Read Routine (OP Routine) 11/06/2023 1:06 PM CDT Screening mammogram, encounter for from Last 3 Months or Most Recently Relevant to Health Maintenance Results * Screening Mammogram Bilateral W Filomena (11/06/2023 1:06 PM CDT) Anatomical Region Laterality Modality Breast Bilateral Mammography 11/06/2023 1:46 PM CDT Impressions 11/06/2023 1:46 PM CDT No evidence of malignancy in either breast. FINAL ASSESSMENT: BI-RADS Category 2: Benign. RECOMMENDATION: Recommend return for annual screening mammogram in 12 months. Electronically signed by: Mary Ellen Wills M.D. Narrative 11/06/2023 1:46 PM CDT EXAMINATION: BILATERAL SCREENING MAMMOGRAM COMPARISON: All prior mammograms dating back to 2018. TECHNIQUE: Full-field 2D and digital breast tomosynthesis (DBT) images were obtained. CAD was utilized. BREAST PARENCHYMAL COMPOSITION: There are scattered areas of fibroglandular density. FINDINGS: There is no suspicious mass, calcification, or distortion in either breast. Postsurgical changes are seen bilaterally. us Self Screening Mammogram IMG MAMMO PROCEDURES Fi nal Result from Last 3 Months or Most Recently Relevant to Health Maintenance [place] [address] [facility] [place] [address] [id number] [facility] [place] [address] [place] [address] [facility] MEDICARE [facility] Care Teams Firesetter Relationship Specialty Start Date End Date Katerin Lima MD PCP - General Family Medicine 08/04/22
--- OUTSIDE RECORDS SUMMARY | 2024-11-23 13:06 | XMS_ITS | Clinical Summary ---
Author Organization [facility] Address [address] [place] [address] Care Team Providers Care Insulation Cutter And Former Name Role Phone Katerin Lima MD Primary [...] route every day 0 0 5 Active ietdu-0y-zvg-ep a-fish oil (OMEGA-3 FISH OIL) 300-1,000 mg [...] chest pain 09/16/2014 Overview (11/08/2016): Chest pain Surgical History Surgery Date Site/Laterality Comments BREAST BIOPSY Right benign BREAST BIOPSY Left benign BREAST BIOPSY Left benign Medical History Medical History Date Comments Hx Other Medical fibromyalgia, h yperlipidemia, sinusitis, anxiety,; Comments: MAF 09/16/2014 - Thyroid cancer (HCC) Family History Medical History Relation Name Comments Heart failure Father Congestive hea rt failure; Stroke Father Stroke; Liver cancer Maternal Grandmother Cancer, liver; Breast cancer Mother Cancer, breast ; Cause of : Cancer, breast Ovarian cancer Mother's Sister Hepatitis Sister Hepatitis C; Relation Name Status Comments Father Maternal Grandmother Mother Mother's Sister Sister Social History Tobacco Use Types Packs/Day [...] on file Legal Sex Female 12:34 AM YARN SORTER Gender Identity Not on file Sexual Orientation Not on file Obstetrics History Para Term AB IAB SAB Ectopic Multiple Livin g Live Births 5 5 5 Date Outcome GA Total Labor Labor/2nd/3rd Weight Sex Type Anes PTL Kelsy A1 A5 Name Clin Term Term Term Term Term Last Filed Vital Signs Vital Sign Reading [...] 04/06/2024 10:55 AM CDT Plan of Treatment Health Maintenance Due Date Last Done Comments Depression Screening 1945 Fall Risk Assessment 1945 Hepatitis C Screening 1945 Osteoporosis Screening-Bone Density Scan 1945 Hepatitis B Screening 1964 Well Visit 65+ 10/22/2011 Pneumococcal vaccine 65+ (2 of 2 - PCV) 05/20/2015 05/20/2014 Zoster Vaccine (2 of 3) 05/13/2017 03/18/2017 DTaP/Tdap/Td Vaccine (2 - Td or Tdap) 07/24/2020 07/24/2010 Influenza Vaccine (#1) 2024 06/03/2018, 2012 Breast Cancer Screening-Mammogram Discontinued 11/06/2023, 08/23/2022, 01/26/2021, Additional history exists Procedures Procedure Name Priority Date/Time Associated Diagnosis [...] Most Recently Relevant to [place] [id number] [facility] MEDICARE ADVANTAGE [facility] MEDICARE Address: [facility] [address] [place] [address] [place] [id number] [facility] [place] [address] [facility] MEDICARE [facility] Care Teams Insulation Cutter And Former Relationship Specialty Start Date End Date Katerin Lima MD PCP - General Family Medicine 08/04/22
--- OUTSIDE RECORDS SUMMARY | 2024-11-23 13:06 | XMS_ITS | Continuity of Care Document ---
Author Organization [facility] Address [address] [place] [address] [address] [place] [address] Phone Care Team Providers Care Senior Economist Name Role Phone Reynaldo Ribeiro Unavailable Unavailable Advance Directives Directive Yes / No Effective Date File Name No Information Encounters Encounter Description Practice Location Reason(s) For Visit Diagnoses Date Provider Providers Copied on Encounter [facility], [address], [place], [place], [id number], [place] tel:[phone] [facility] No Information [address] Edward. [address] , [address], [place], [address], [place]. tel:[phone] Family History Family Member Type Diagnosis Age At Onset No Information Payers Payer name Insurance type Covered green party ID Authoriza tion(s) [place] [id number] Social History Type Description Quantity Date Captured Comments Sex Female Smoking Status No Information Chief Complaint And Reason For Visit No Information Reason For Referral Reason For Referral No Information History Of Present Illness Encounter Date Complaint History Of Prese nt Illness No Information Functional Status Date Functional Assessmen t No Information Instructions Date Instruction Additional Infor mation No Information Assessments Type Assessment Date No Information Patient Care Teams Name Effective Dates (start - stop) Status Members No Information
--- OUTSIDE RECORDS SUMMARY | 2024-11-23 13:06 | XMS_ITS | Clinical Summary ---
Author Organization [facility] Address [address] [facility] [place] [address] Care Team Providers Care Arts Education Teacher Name Role Phone Michelle Jaramillo MD Primary Care Provider [phone] Source Comments [facility],non-owned Affiliates and Associated Physician Practices is amultiple site organization consisting of ambulatory clinics and hospital sitesin [place], [place], [place] and [place]. This disclosure is being madepursuant to the Care Everywhere program and may not contain all information available regarding this patient. Last updated 18.[facility] Allergies Active Allergy Reactions Criticality Noted Date Comments Prochlorperazine 05/14/2016 Estrogens Conjugated 05/14/2016 Hydrocodone-Acetaminophen 05/14/2016 Medications * Be aware that medications may not be up to date on this document. Alwaysverify current medications with the patient. ALPRAZolam (XANAX) 0.25 MG tablet Take 0.25 mg by mouth 3 times daily as needed for Anxiety Active amitriptyline (ELAVIL) 50 MG tablet Take 50 mg by mouth at bedtime 1-2 HS prn Active escitalopram (LEXAPRO) 10 MG tablet Take 10 mg by mouth once daily Active gabapentin (NEURONTIN) 300 MG capsule Take 300 mg by mouth at bedtime Active Fluticasone Propionate (FLONASE NA) Active metoprolol tartrate (LOPRESSOR) 25 MG tablet Take 25 mg by mouth 2 times daily Active Calcium Citrate-Vitami n D (CALCIUM + D PO) Active [place]-3 Fatty Acids (FISH OIL DELAYED RELEASE) 1000 MG capsule Take 2 Caps by mouth daily with food Active Cholecalcifero l (D3 ADULT PO) Active acetaminophen (Tylenol) 500 MG tablet Take 1 (one) tablet by mouth every 6 hours as needed for Pain or Headache Maximum allowable Acetaminophen amount = 4 Grams (4000 mg) / 24 hours. 30 tablet 2 Active ibuprofen (Motrin) 600 MG tablet Take 1 (one) tablet by mouth every 6 hours as needed for Pain 30 tablet 2 Active lidocaine (Lidoderm) 5 % patch Apply 1 (one) patch to skin once daily Apply patch to most painful area and remove after 12 hours. May reapply a new patch 12 hours later. 15 patch 2 Active Active Problems Problem Noted Date Diagnosed Date Closed head injury 05/27/2022 Impaired mobility and ADLs 05/27/2022 Dizziness 05/26/2022 Trauma 05/26/2022 Abrasion of scalp, initial encounter 05/26/2022 Acute post-traumatic headache, not intractable 1 Family History Medical History Relation Name Comments Heart Failure Father age 8 4 Cancer Mother age 65 Relation Name Status Comments Father Mother Social History Tobacco Use Types Packs/Day Years [...] Sign Reading Time Taken Comments Blood Pressure 136/81 05/27/2022 12:00 PM CDT Pulse 105 05/26/2022 8:53 PM CDT Temperature 36.4 C (97.6 F) 05/27/2022 4:00 AM CDT Respiratory Rate 17 05/26/2022 8:53 PM CDT Oxygen Saturation 95% 05/27/2022 12:00 PM CDT Inhaled Oxygen Concentration - - Weight 61.2 kg (135 lb) 05/26/2022 2:04 PM CDT Height 160 cm (5' 3 ) 05/26/2022 2:04 PM CDT Body Mass Index 23.91 05/26/2022 2:04 PM CDT Plan of Treatment Health Maintenance Due Date Last Done Comments BONE DENSITY TESTING 1945 HEPATITIS C SCREENING 10/16/1964 DTAP/TDAP/TD VACCINES (1 - Tdap) 1965 PNEUMOCOCCAL VACCINE 50+ (1 of 1 - PCV) 1996 ZOSTER VACCINE (1 of 2) 1996 Respiratory Syncytial Virus (RSV) Vaccine Pt: or over 60 yrs (1 - 1-dose 75+ series) 2021 COVID-19 VACCINE (3 - season) 2024 11/16/2020, 10/19/2020 DEPRESSION SCREENING 08/04/2024 MEDICARE AWV CALENDAR YEAR 2024 INFLUENZA VACCINE (Season Ended) 2025 05/07/2021, 06/02/2020, 06/03/2018, Additional history exists HEPATITIS B VACCINE Aged Out No longe r eligible based on patient's age to complete this topic HIB VACCINE Aged Out No longer eligi ble based on patient's age to complete this topic HPV VACCINE Aged Out No longer eligi ble based on patient's age to complete this topic MENINGOCOCCAL (Group B) VACCINE SHARED DECISION-MAKING Aged Out No longer eligible based on patient's age to complete this topic MENINGOCOCCAL GROUPS A/C/Y/W VACCINE Aged Out No longer eligible based on patient's age to complete this topic [place] [address] [place] [id number] [employer] THIRD REPUBLICAN LIABILITY Democrat Liability COMMERCIAL GENERIC Care Teams Arts Education Teacher Relationship Specialty Start Date End Date Michelle Jaramillo MD [facility] [place] [id number] PCP - General Family Medicine 05/26/22
[2024-11-23 14:36] LABS: Basophils Absolute Auto 0.1 K/mm3 (0.0-0.1); Basophils Percent Auto 1.1 % (0.2-1.2); Eosinophils Absolute Auto 0.1 K/mm3 (0-0.3); Hematocrit 41.1 % (37.0-47.0); Hemoglobin 13.1 g/dL (12.0-15.0); Lymphocytes Absolute Auto 1.51 K/mm3 (0.9-3.2); Mean Corpuscular HGB Conc 31.9 g/dl (32-36); Mean Corpuscular Hemoglobin 31.6 pg (26-34); Mean Corpuscular Volume 99.3 fl (80-100); Mean Platelet Volume 11.2 fl (7.4-10.4); Monocytes Absolute Auto 0.4 K/mm3 (0.1-0.6); Monocytes Percent Auto 7.2 % (2.6-8.5); Neutrophils Absolute Auto 3.3 K/mm3 (1.3-6.7); Neutrophils Percent Auto 61.7 % (45.5-73.1); Platelet Count Result 166 k/mm3 (150-375); Red Blood Count 4.14 M/mm3 (4.2-5.4); White Blood Count 5.4 K/mm3 (4.5-10.0)
[2024-11-23 14:38] LABS: Alanine Aminotransferase 33 U/L (6-35); Albumin Level 4.3 g/dL (3.5-5.1); Alkaline Phosphatase 75 U/L (38-126); Anion Gap 7 mmol/L (4-12); Aspartate Amino Transferase 36 U/L (14-36); Blood Urea Nitrogen 17 mg/dL (7-17); Calcium 9.4 mg/dL (8.4-10.2); Carbon Dioxide 30 mmol/L (22-30); Chloride 104 mmol/L (98-107); Cholesterol 221 mg/dL (0-200); Estimated Glomerular Filt Rate > 60; Glucose 88 mg/dL (65-110); HDL Direct 65 mg/dL; Potassium 5.5 mmol/L (3.4-5.0); Sodium 141 mmol/L (137-145); Triglycerides 165 mg/dL (<150)
[2024-11-23 14:49] LABS: LDL Cholesterol Direct 106 mg/dL
== END 2024-11-23 11:17 | disposition home or self-care (01) ==
LOC: ANHGOSHLAB 11:17
PROVIDERS: PCP Family Medicine; Visit Provider Student in an Organized Health Care Education/Training Program
DX: R00.0 Tachycardia, unspecified (principal); E78.5 Hyperlipidemia, unspecified
CPT/HCPCS: 36415; 80053; 80061; 84443; 85025

== ENCOUNTER 2024-12-02 15:02 | Outpatient (CLI) | payer MEDICARE, SELFPAY ==
--- OUTSIDE RECORDS SUMMARY | 2024-12-02 15:33 | XMS_ITS | Clinical Summary ---
Author Organization [facility] Address [address] [facility] [place] [address] Care Team Providers Care Dye Lab Technician Name Role Phone Michelle Jaramillo MD Primary Care Provider [phone] Source Comments [facility],non-owned Affiliates and Associated Physician Practices is amultiple site organization consisting of ambulatory clinics and hospital sitesin [place], [place], [place] and [place]. This disclosure is being madepursuant to the Care Everywhere program and may not contain all information available regarding this patient. Last updated 18.[facility] Allergies Active Allergy Reactions Criticality Noted [...] n D (CALCIUM + D PO) Active [place]-3 Fatty Acids (FISH OIL DELAYED RELEASE) 1000 [...] age to complete this topic [place] [address] [place] [id number] T[employer] THIRD CONSTITUTION PARTY LIABILITY Constitution Party Liability COMMERCIAL GENERIC Care Teams Dye Lab Technician Relationship Specialty Start Date End Date Michelle Jaramillo MD [facility] [place] [address] PCP - General Family Medicine 05/26/22
--- OUTSIDE RECORDS SUMMARY | 2024-12-02 15:33 | XMS_ITS | Encounter Summary ---
Author Organization [facility] Address [address] [facility] [place] [address] Care Team Providers Care Intelligent Systems Engineer Name Role Phone Michelle Jaramillo MD Primary Care Provider [phone] Encounter Details Date Type Department Care Team (Late st Contact Info) Description 05/05/2024 Lab Requisition [facility] - DermPath Lab [address] [facility] [place] [address] Thu Jones MD [address] [facility] [address] [place] [address] Social History Tobacco Use Types Packs/Day Years [...] AM CDT) Case Report Dermatopathology Report Case: [id number] Authorizing Provider: Thu Jones MD Collected: 05/05/2024 09:17 AM Ordering Location: [facility] - Received: 05/06/2024 06:25 AM [...] characteristic determined by the Dermatopathology Laboratory at [facility], directed by Dr. Dayan Boles. These tests need not be, and therefore are not, approved by the [place] Food and Drug Administration. The tests are used for clinical purposes. Billing Codes Specimen Charges Stain Charges 39109 1 1:59 PM CDT DERMATOPATHOLOGY LABORATORY Embedded Images 1:59 PM CDT DERMATOPATHOLOGY LABORATORY Pathology/Cytolo gy TISSUE SPECIMEN FROM SKIN / Unknown 05/05/2024 9:17 AM CDT 05/06/2024 6:25 AM CDT us Thu Jones MD LAB - PATHOLOGY/CYTOLOGY OR DERABLES Final Result DERMATOPATHOLOGY LABORATORY [facility] - Department of Dermatology [facility] [address] [place] [address], [address] [phone] documented in this encounter Visit Diagnoses Not on filedocumented in this encounter Care Teams Intelligent Systems Engineer Relationship Specialty Start Date End Date Michelle Jaramillo MD [facility] [place] [address] PCP - General Family Medicine 05/26/22 documented as of this encounter
--- OUTSIDE RECORDS SUMMARY | 2024-12-02 15:33 | XMS_ITS | Clinical Summary ---
Author Organization [facility] Address [address] [address] Care Team Providers Care Supervisor Microbiology Technologists Name Role Phone Michelle Jaramillo MD Primary Care Provider [phone] Allergies Active Allergy Reactions Criticality Noted Date [...] age to complete this topic Care Teams Supervisor Microbiology Technologists Relationship Specialty Start Date End Date Michelle Jarmaillo MD [facility] [place] [address] PCP - General Family Medicine 07/03/21
--- OUTSIDE RECORDS SUMMARY | 2024-12-02 15:33 | XMS_ITS | Clinical Summary ---
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 MEDICARE ADVANTAGE [facility] MEDICARE Address: [facility] [address] [place] [address] [place] [id number] [employer] [place] [address] [facility] MEDICARE [place] Care Teams Economic Development Manager Relationship Specialty Start Date End Date Katerin Lima MD PCP - General Family Medicine 08/04/22
--- OUTSIDE RECORDS SUMMARY | 2024-12-02 15:33 | XMS_ITS | Referral Summary ---
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
--- OUTSIDE RECORDS SUMMARY | 2024-12-02 15:33 | XMS_ITS | Continuity of Care Document ---
Author Organization [facility] Address [address] [place] [address] [address] [place] [address] Phone Care Team Providers Care Formula Checker Name Role Phone Reynaldo Ribeiro Unavailable Unavailable Advance Directives Directive Yes / No Effective Date File Name No Information Encounters Encounter Description Practice Location Reason(s) For Visit Diagnoses Date Provider Providers Copied on Encounter [facility], [address], [place], [place], [id number], [place] tel:[phone] [facility] No Information [address] , [address], [place], [address], [place]. tel:[phone] Family History Family Member Type Diagnosis Age At Onset No Information Payers Payer name Insurance type Covered republican ID Authoriza tion(s) [place] [id number] Social History Type Description Quantity Date Captured [...]
--- OUTSIDE RECORDS SUMMARY | 2024-12-02 15:33 | XMS_ITS | Data Portability ---
Author Organization [facility] Address [address] [place] [phone] Assessment No assessment recorded. Plan of Treatment Reminders Order Date Submit Date Provider Last Modified By Organization Details Last Modified Time Details Appointments None record ed. Lab None record ed. Referral None record ed. Procedures None record ed. Surgeries None record ed. Imaging None record ed. Medication Orders None record ed. Patient TargetsNo targets recorded. Patient InstructionsNo instructions recorded. Reason for Referral None Reported. Medical Equipment None Reported. Vitals None Recorded Social History None recorded. Functional Status None recorded. Mental Status None recorded. Family History Nothing Reported. Medical History No medical history recorded. Gynecological HistoryNo gynecological history recorded. Obstetrics History GPAL:G 0 P 0 0 0 0 Immunizations Vaccine Type Date Status Note Provider Nam e and Address Organization Details Recorded Time COVID-19, mRNA, LNP-S, PF, 100 mcg/0.5mL dose or 50 mcg/0.25mL dose 10/19/2020 completed Christelle Garcia [place] null, [place] - [facility] 10/19/2020 17:14:38 COVID-19, mRNA, LNP-S, PF, 100 mcg/0.5mL dose or 50 mcg/0.25mL dose 11/16/2020 completed Irvin Sousa [place] null, [place] [facility] 11/16/2020 16:17:44 Past Encounters Encounter ID Performer Location Encounter Start Date Encounter Closed Date Diagnosis/Indication Diagnosis SNOMED-CT Code Diagnosis ICD10 Code Diagnosis Note [id number] MD Cecily Wilson 14 IM [address] [facility] [place] [address] 10/19/2020 16:34:12 2020 09:52:37 Administration of SARS-CoV-2 antigen vaccine [id number] Z23 [id number] MD Cecily Wilson 14 IM 4 [facility] [address] [place] [address] 11/16/2020 16:13:33 11/17/2020 16:08:49 Administration of SARS-CoV-2 antigen vaccine [id number] Z23 Health Concerns Section Related Observation LastModified by Organization Detai ls LastModified Time None Recorded Concern Status LastModified by Organization Details LastModified Time None Recorded Advance Directives Directive None Recorded Payers Encounter Date Sequence Insurance Name Policy Number Policy Zhang Covered Member ID Zhang Member ID Guarantor Name 10/19/2020 1 [facility] (MEDICARE REPLACEMENT/A DVANTAGE - PPO) [id number] Shantel Paulino [id number] Shantel Paulino 11/16/2020 1 [facility] (MEDICARE REPLACEMENT/A DVANTAGE - PPO) [id number] Shantel Paulino [id number] Shantel Paulino OBGyn Episode No OBEpisode recorded.
[2024-12-02 19:48] LABS: Potassium 4.7 mmol/L (3.4-5.0)
== END 2024-12-02 15:03 | disposition home or self-care (01) ==
LOC: ANHGOSHLAB 15:04
PROVIDERS: PCP Family Medicine; Visit Provider Student in an Organized Health Care Education/Training Program
DX: E87.5 Hyperkalemia (principal)
CPT/HCPCS: 36415; 84132